=== PATIENT | male | born 1970 | race African-American/Black ===

== ENCOUNTER → 2017-03-04 | Outpatient (CLI) | payer BC ==
[2017-03-04 10:56] LABS: MEAN CORPUSCULAR HEMOGLOBIN 30.9 pg (27.0-33.0); MEAN CORPUSCULAR HGB CONC 32.9 g/dl (32.0-36.5); MEAN CORPUSCULAR VOLUME 94.2 fl (80.0-96.0); PLATELET COUNT, AUTOMATED 250 10^3/uL (150-450); WHITE BLOOD COUNT 5.6 10^3/uL (4.0-10.0)
[2017-03-04 11:17] LABS: ALBUMIN 3.8 GM/DL (3.2-5.2); ALBUMIN/GLOBULIN RATIO 1.03 (1.00-1.93); ALKALINE PHOSPHATASE 67 U/L (45-117); ALT/SGPT 25 U/L (12-78); ANION GAP 5 MEQ/L (8-16); AST/SGOT 14 U/L (7-37); BLOOD UREA NITROGEN 11 MG/DL (7-18); CALCIUM LEVEL 8.8 MG/DL (8.5-10.1); CARBON DIOXIDE LEVEL 33 MEQ/L (21-32); CHLORIDE LEVEL 104 MEQ/L (98-107); CHOLESTEROL LEVEL 198 MG/DL (<200); CREATININE FOR GFR 1.05 MG/DL (0.70-1.30); GLOMERULAR FILTRATION RATE > 60.0 (>60); GLUCOSE, FASTING 100 MG/DL (70-105); POTASSIUM SERUM 4.5 MEQ/L (3.5-5.1); SODIUM LEVEL 142 MEQ/L (136-145); TOTAL PROTEIN 7.5 GM/DL (6.4-8.2); TRIGLYCERIDES LEVEL 166 MG/DL (<150)
== END ==
LOC: M LAB 10:38
PROVIDERS: ATTEND Family Medicine
DX: R73.09 Other abnormal glucose (principal); N52.31 Erectile dysfunction following radical prostatectomy; K21.9 Gastro-esophageal reflux disease without esophagitis

== ENCOUNTER → 2018-08-14 | Outpatient (REF) | payer BC ==
[2018-08-14 08:53] LABS: HEMOGLOBIN 15.5 g/dl (13.5-17.5); MEAN CORPUSCULAR HEMOGLOBIN 31.1 pg (27.0-33.0); MEAN CORPUSCULAR HGB CONC 32.3 g/dl (32.0-36.5); MEAN CORPUSCULAR VOLUME 96.2 fl (80.0-96.0); PLATELET COUNT, AUTOMATED 243 10^3/uL (150-450); RED BLOOD COUNT 4.99 10^6/uL (4.30-6.10)
[2018-08-14 09:01] LABS: ALBUMIN 3.6 GM/DL (3.2-5.2); ALT/SGPT 25 U/L (12-78); BILIRUBIN,TOTAL 0.8 MG/DL (0.2-1.0); BLOOD UREA NITROGEN 19 MG/DL (7-18); CALCIUM LEVEL 8.8 MG/DL (8.5-10.1); CARBON DIOXIDE LEVEL 33 MEQ/L (21-32); CHLORIDE LEVEL 105 MEQ/L (98-107); CHOLESTEROL LEVEL 173 MG/DL (<200); CHOLESTEROL RISK RATIO 4.552 (<5); CREATININE FOR GFR 1.12 MG/DL (0.70-1.30); GLOMERULAR FILTRATION RATE > 60.0 (>60); GLUCOSE, FASTING 106 MG/DL (70-100); HDL CHOLESTEROL 38 MG/DL (>40); LDL CHOLESTEROL 113 MG/DL (<100); NON-HDL-C 135 MG/DL; POTASSIUM SERUM 4.6 MEQ/L (3.5-5.1); PROSTATIC SPECIFIC AG MONITOR 0.02 NG/ML (< 4.00); SODIUM LEVEL 142 MEQ/L (136-145); TOTAL PROTEIN 7.5 GM/DL (6.4-8.2); TRIGLYCERIDES LEVEL 108 MG/DL (<150)
[2018-08-14 09:10] LABS: HEMOGLOBIN A1c 5.3 %
[2018-08-14 09:57] LABS: TOTAL 25(OH) VITAMIN D 9.8 NG/ML (30.0-100.0)
[2018-08-14 10:16] LABS: TESTOSTERONE 564 NG/DL (241-827)
[2018-08-15 10:10] LABS: TESTOSTERONE FREE (DIRECT) 9.7 pg/mL (6.8-21.5)
== END ==
LOC: M LAB REF 08:20
PROVIDERS: ATTEND Family Medicine
DX: Z85.46 Personal history of malignant neoplasm of prostate (principal); E55.9 Vitamin D deficiency, unspecified; E78.49 Other hyperlipidemia; N52.31 Erectile dysfunction following radical prostatectomy; R73.09 Other abnormal glucose; K21.9 Gastro-esophageal reflux disease without esophagitis

== ENCOUNTER → 2023-02-01 | Day surgery (SDC) | payer OTHER ==
[~2023-02-01] VITALS: Ht 180.3 cm; Wt 87.6 kg
[~2023-02-01] MED LIST: ACETAMINOPHEN 1000MG 100ML IV BAG As Ordered ONE; FLON1SPR; HYDROMORPHONE HCL 0.5 MG/ 0.5 ML SYRINGE IV PRN; KETOROLAC 60MG 2ML VIAL As Ordered ONE; LEVOTAB10 PO; LIDOCAINE 2% 100MG/5ML SDV (FOR ANES.) As Ordered ONE; LR 1,000 ML IV SCH; METOCLOPRAMIDE INJ 10MG/2ML VIAL As Ordered ONE; MIDAZOLAM INJ 2MG/2ML VIAL As Ordered ONE; NORCO, ANEXSIA 5/325MG TABLET (HYDROcodone/ACETAMINOPHEN) PO PRN; ONDANSETRON 4MG 2ML VIAL As Ordered ONE; ONDANSETRON 4MG 2ML VIAL IV PRN; PROT20TA11 PO; ROCURONIUM BROMIDE 50MG/5ML VIAL As Ordered ONE; SIMETHICONE 80MG CHEW TAB PO STA; SUGAMMADEX SODIUM 500 MG/5 ML VIAL (BRIDION) As Ordered ONE; TADA5TAB PO; allergy injections; ceFAZolin SOD 2 GM in IV 1 EA IV ONE; dexmedeTOMIDine (4MCG/ML)200MCG/50ML BTL (PRECEDEX) As Ordered ONE; fentaNYL 100 MCG/2 ML INJECTION IV PRN; fentaNYL 250 MCG/5 ML INJECTION As Ordered ONE; oxyCODONE 5MG TAB PO PRN; propofoL 200 MG/20 ML VIAL As Ordered ONE
[2023-02-01 12:09] VITALS: BP 142/90; TEMP 97; O2SAT 95
== END | disposition home or self-care (01) ==
LOC: M SDC 06:12
PROVIDERS: ATTEND Surgery
DX: K40.90 Unilateral inguinal hernia, without obstruction or gangrene, not specified as recurrent (principal); K21.9 Gastro-esophageal reflux disease without esophagitis; Z79.899 Other long term (current) drug therapy; Z85.49 Personal history of malignant neoplasm of other male genital organs
CPT/HCPCS: 49650; C1781; J0131; J0665; J0690; J1100; J1885; J2250; J2405; J2765; J3010; S2900

== ENCOUNTER 2023-12-07 06:52 | Day surgery (SDC) | payer OTHER ==
[~2023-12-07] VITALS: Ht 180.3 cm; Wt 85.2 kg
[~2023-12-07 06:52] MED LIST changes: -ACETAMINOPHEN 1000MG 100ML IV BAG As Ordered ONE; -HYDROMORPHONE HCL 0.5 MG/ 0.5 ML SYRINGE IV PRN; -KETOROLAC 60MG 2ML VIAL As Ordered ONE; -LIDOCAINE 2% 100MG/5ML SDV (FOR ANES.) As Ordered ONE; -LR 1,000 ML IV SCH; -METOCLOPRAMIDE INJ 10MG/2ML VIAL As Ordered ONE; -MIDAZOLAM INJ 2MG/2ML VIAL As Ordered ONE; -NORCO, ANEXSIA 5/325MG TABLET (HYDROcodone/ACETAMINOPHEN) PO PRN; -ONDANSETRON 4MG 2ML VIAL As Ordered ONE; -ONDANSETRON 4MG 2ML VIAL IV PRN; -ROCURONIUM BROMIDE 50MG/5ML VIAL As Ordered ONE; -SIMETHICONE 80MG CHEW TAB PO STA; -SUGAMMADEX SODIUM 500 MG/5 ML VIAL (BRIDION) As Ordered ONE; -ceFAZolin SOD 2 GM in IV 1 EA IV ONE; -dexmedeTOMIDine (4MCG/ML)200MCG/50ML BTL (PRECEDEX) As Ordered ONE; -fentaNYL 100 MCG/2 ML INJECTION IV PRN; -fentaNYL 250 MCG/5 ML INJECTION As Ordered ONE; -oxyCODONE 5MG TAB PO PRN; -propofoL 200 MG/20 ML VIAL As Ordered ONE
[2023-12-07] MEDS ORDERED: LIDOCAINE 2% 100MG/5ML SDV (FOR ANES.) As Ordered ONE (07:06)
[2023-12-07] MEDS ORDERED: propofoL 200 MG/20 ML VIAL As Ordered ONE (07:06)
[2023-12-07] MEDS: NS 1,000 ML IV ONE (07:18)
[2023-12-07 07:45] VITALS: TEMP 97.6
[2023-12-07 08:01] VITALS: BP 154/93; O2SAT 98
== END 2023-12-07 08:06 | disposition home or self-care (01) ==
LOC: M OPP 06:52
PROVIDERS: ATTEND Surgery
DX: Z12.11 Encounter for screening for malignant neoplasm of colon (principal); K64.1 Second degree hemorrhoids; Z79.51 Long term (current) use of inhaled steroids; Z79.811 Long term (current) use of aromatase inhibitors; Z79.899 Other long term (current) drug therapy

== ENCOUNTER → 2024-03-21 | Outpatient (REF) | payer OTHER ==
[~2024-03-21] MED LIST changes: -TADA5TAB PO; +TADA5TAB94 PO
== END ==
LOC: M SFHCADAM 11:59
PROVIDERS: ATTEND Family Medicine
DX: Z53.9 Procedure and treatment not carried out, unspecified reason (principal)

== ENCOUNTER 2024-03-30 08:42 | Emergency (ER) | payer OTHER ==
[~2024-03-30] VITALS: Ht 180.3 cm; Wt 133.6 kg
[2024-03-30] MEDS ORDERED: CYCL-707 (09:38)
[2024-03-30] MEDS: KETOROLAC 30 MG/ML 1ML VIAL IV ONE ×2 (10:27→17:43)
[2024-03-30] MEDS: LORazepam 2 MG/ML 1ML VIAL IV ONE (10:28)
[2024-03-30] MEDS: ONDANSETRON 4MG 2ML VIAL IV ONE (13:33)
[2024-03-30] MEDS: MORPHINE 4 MG/ML 1ML VIAL IV PRN (13:34)
[2024-03-30] MEDS: tiZANidine 4 MG TAB PO ONE (15:08)
[2024-03-30 17:07] VITALS: TEMP 97.3
[2024-03-30] MEDS ORDERED: KETO10TAB PO (17:35)
[2024-03-30] MEDS ORDERED: MEDR4PAK PO (17:35)
[2024-03-30 18:15] VITALS: BP 115/67; O2SAT 97
== END 2024-03-30 18:21 | disposition home or self-care (01) ==
LOC: M ED 08:42
DX: M51.16 Intervertebral disc disorders with radiculopathy, lumbar region (principal); M25.551 Pain in right hip; K21.9 Gastro-esophageal reflux disease without esophagitis; E78.5 Hyperlipidemia, unspecified; N40.0 Benign prostatic hyperplasia without lower urinary tract symptoms; Z85.46 Personal history of malignant neoplasm of prostate; F10.10 Alcohol abuse, uncomplicated; Z79.2 Long term (current) use of antibiotics; Z79.899 Other long term (current) drug therapy
CPT/HCPCS: 72110; 72148; 73502; 96374; 96375; 96376; 99284; J1885; J2060; J2405

== ENCOUNTER → 2024-07-30 | Outpatient (CLI) | payer OTHER ==
[~2024-07-30] MED LIST changes: +CYCL-707; +KETO10TAB PO; +MEDR4PAK PO; +TADA5TAB2 PO; -TADA5TAB94 PO
== END ==
LOC: M RAD 08:09
PROVIDERS: ATTEND Otolaryngology
DX: J32.0 Chronic maxillary sinusitis (principal)

== ENCOUNTER → 2024-12-03 | Outpatient (CLI) | payer OTHER | LOC: M RAD 11:32 | PROVIDERS: ATTEND Surgery | DX: R10.13 Epigastric pain (principal) ==